=== PATIENT | male | born 1945 | race Caucasian/White ===

== ENCOUNTER → 2018-07-07 | Outpatient (REF) | payer MEDICARE, OTHER ==
[~2018-07-07] MED LIST: AMIODARONE200 MG PO; BAYER ASPIRIN E81 MG PO; DIGOXIN0.125 MG PO; ELIQUIS5 MG PO; LIPITOR20 M1 PO; PROSCAR5 MG PO; TAMSULOSIN HCL0.4 MG PO; VITAMIN D35000 UNIT PO
[2018-07-07 15:55] LABS: HEMATOCRIT 39.5 % (39.0-50.0); HEMOGLOBIN 12.2 g/dl (14.0-18.0); MEAN CELL VOLUME 81.3 fL CALC (80.0-100.0); MEAN CORPUSCULAR HGB 25.1 pG CALC (26.0-32.0); MEAN CORPUSCULAR HGB CONC 30.9 g/L CALC (32.0-36.0); RED BLOOD COUNT 4.86 mill/uL (4.70-6.10); RED CELL DISTRI WIDTH 15.9 % (11.5-15.5)
[2018-07-07 16:15] LABS: ALKALINE PHOSPHATASE 81 u/l (38-126); ANION GAP 12 (6-22 (CALC)); BILIRUBIN, TOTAL 0.7 mg/dL (0.0-1.4); BUN 20 mg/dL (8-23); BUN/CREATININE RATIO 17 (12-20 (CALC)); CALCULATED LDLCHOLESTEROL 64 mg/dL (62-129 (CALC)); CARBON DIOXIDE 30 mmol/l (22-30); CHLORIDE 104 mmol/l (95-108); CREATININE 1.1 mg/dL (0.7-1.3); GFR > 60 ML/MIN (>=60 (CALC)); GFR FOR AFR.AMER. > 60 ML/MIN (>=60 (CALC)); HDL CHOLESTEROL 58 mg/dL (>=40); POTASSIUM 4.5 mmol/l (3.5-5.1); SGOT/AST 60 u/l (19-48); SODIUM 141 mmol/l (137-146); TOTAL CHOLESTEROL 174 mg/dl (0-199); TOTAL PROTEIN 6.6 g/dL (6.3-8.2); TOTAL TRIGLYCERIDES 256 mg/dl (30-149); VLDL CHOLESTROL 51 mg/dl (0-38 (CALC))
[2018-07-07 16:44] LABS: TSH, 3RD GENERATION 2.02 uIU/mL (0.47 - 4.68)
== END | disposition home or self-care (01) ==
LOC: LAB 15:04
PROVIDERS: ATTEND Internal Medicine
DX: I10 Essential (primary) hypertension (principal); E78.49 Other hyperlipidemia; I25.10 Atherosclerotic heart disease of native coronary artery without angina pectoris; E55.9 Vitamin D deficiency, unspecified; E11.65 Type 2 diabetes mellitus with hyperglycemia